=== PATIENT | male | born 1980 | race Two or more races ===

== ENCOUNTER 2021-10-25 20:14 | Emergency (ER) | payer SELFPAY ==
[~2021-10-25] VITALS: Ht 175.3 cm; Wt 86.2 kg
[2021-10-25 22:49] VITALS: BP 129/84
== END 2021-10-25 22:49 | disposition home or self-care (01) ==
LOC: ER 20:20
DX: U07.1 COVID-19 (principal); J18.9 Pneumonia, unspecified organism
CPT/HCPCS: 36415; 71045; 87426